=== PATIENT | male | born 1965 | race Caucasian/White ===

== ENCOUNTER → 2018-03-08 14:42 | Outpatient (CLI) | payer OTHER, SELFPAY ==
[2018-03-08 15:54] LABS: PSA,Total - Annual Screen 0.47 ng/mL (0.00-4.00)
[2018-03-11 13:43] LABS: ALB/GLOB Ratio 1.1 RATIO (0.9-2.4); AST(SGOT) 28 U/L (15-37); Alanine Aminotransfer ALT/SGPT 42 U/L (16-61); Alkaline Phosphatase 69 U/L (45-117); Anion Gap 10 (5-15); BUN 14 mg/dL (7-18); BUN/Creat Ratio 16.8 RATIO (10-20); Calcium,Total 8.5 mg/dL (8.5-10.1); Chloride 103 mmol/L (98-107); Cholesterol 161 mg/dL (200); Creatinine, Serum 0.83 mg/dL (0.70-1.30); EST Glomerular Filtration Rate 103 mL/min (>60); Est Glom Filt Rate - Afr Amer 125 mL/min (>60); Globulin 3.5 g/dL (2.2-4.2); Glucose 88 mg/dL (74-106); High Density Lipoprotein 36 mg/dL; Potassium 4.2 mmol/L (3.5-5.1); Protein, Total 7.5 g/dL (6.4-8.2); Sodium Level 138 mmol/L (136-145); Thyroid Stim Hormone (TSH) 2.04 uIU/mL (0.358-3.74); Triglycerides 187 mg/dL; Very Low Density Lipoprotein 37 mg/dL (5-40)
== END ==
PROVIDERS: Nurse Practitioner Family; Family Provider Family Medicine; PCP Family Medicine; Referring Provider Urology; Visit Provider Urology
DX: Z12.5 Encounter for screening for malignant neoplasm of prostate (principal)
CPT/HCPCS: 36415; 80053; 80061; 84153; 84443; G0103

== ENCOUNTER → 2019-07-05 08:59 | Outpatient (CLI) | payer OTHER, SELFPAY ==
[2019-07-05 11:15] LABS: PSA,Total - Annual Screen 0.49 ng/mL (0.00-4.00)
== END ==
PROVIDERS: PCP Family Medicine; Referring Provider Urology; Visit Provider Urology
DX: Z12.5 Encounter for screening for malignant neoplasm of prostate (principal)
CPT/HCPCS: 36415; 84153; G0103

== ENCOUNTER → 2020-02-22 16:25 | Outpatient (CLI) | payer OTHER, SELFPAY ==
[2020-02-22 18:22] LABS: AST(SGOT) 24 U/L (15-37); Alanine Aminotransfer ALT/SGPT 43 U/L (16-61); T4 Total, Thyroxin 9.1 ug/dL (4.5-12.1); Thyroid Stim Hormone (TSH) 2.84 uIU/mL (0.358-3.74)
== END ==
PROVIDERS: PCP Family Medicine; Referring Provider Family Medicine; Visit Provider Family Medicine
DX: Z00.00 Encounter for general adult medical examination without abnormal findings (principal); E03.9 Hypothyroidism, unspecified; E78.5 Hyperlipidemia, unspecified
CPT/HCPCS: 36415; 84436; 84443; 84450; 84460

== ENCOUNTER → 2020-10-15 08:43 | Outpatient (CLI) | payer OTHER, SELFPAY ==
[2020-10-15 10:13] LABS: PSA,Total - Annual Screen 0.53 ng/mL (0.00-4.00)
== END ==
PROVIDERS: PCP Family Medicine; Referring Provider Nurse Practitioner Adult Health; Visit Provider Nurse Practitioner Adult Health
DX: Z12.5 Encounter for screening for malignant neoplasm of prostate (principal)
CPT/HCPCS: 36415; 84153; G0103

== ENCOUNTER → 2021-03-18 14:54 | Outpatient (CLI) | payer OTHER, SELFPAY ==
[2021-03-18 18:20] LABS: AST(SGOT) 25 U/L (15-37); Alanine Aminotransfer ALT/SGPT 49 U/L (16-61); Anion Gap 7 (5-15); BUN 16 mg/dL (7-18); BUN/Creat Ratio 15.5 RATIO (10-20); Calcium,Total 8.7 mg/dL (8.5-10.1); Chloride 105 mmol/L (98-107); Creatinine, Serum 1.03 mg/dL (0.70-1.30); EST Glomerular Filtration Rate 80 mL/min (>60); Est Glom Filt Rate - Afr Amer 97 mL/min (>60); Glucose 119 mg/dL (74-106); Potassium 3.9 mmol/L (3.5-5.1); Sodium Level 137 mmol/L (136-145); T4 Total, Thyroxin 7.5 ug/dL (4.5-12.1); Thyroid Stim Hormone (TSH) 2.78 uIU/mL (0.358-3.74)
[2021-03-18 18:22] LABS: Microalbumin,Random Urine 12.1 mg/L (NO RANGE EST.); Microalbumin:Creatinine Ratio 7.1 mg/g CRE (<30 mg/g CRE)
== END ==
PROVIDERS: PCP Family Medicine; Visit Provider Family Medicine
DX: I10 Essential (primary) hypertension (principal); E03.9 Hypothyroidism, unspecified; E78.5 Hyperlipidemia, unspecified
CPT/HCPCS: 36415; 80048; 82043; 82570; 84436; 84443; 84450; 84460

== ENCOUNTER → 2021-10-21 | Outpatient (CLI) | payer OTHER, SELFPAY ==
[2021-10-21 09:11] LABS: PSA,Total - Annual Screen 0.55 ng/mL (0.00-4.00)
== END | disposition home or self-care (01) ==
LOC: LAB 07:32
PROVIDERS: PCP Family Medicine; Visit Provider Registered Nurse
DX: Z12.5 Encounter for screening for malignant neoplasm of prostate (principal)
CPT/HCPCS: 36415; 84153; G0103

== ENCOUNTER → 2022-06-04 | Outpatient (CLI) | payer OTHER, SELFPAY ==
[2022-06-04 18:37] LABS: Anion Gap 10 (5-15); BUN 19 mg/dL (7-18); BUN/Creat Ratio 21.9 RATIO (10-20); Calcium,Total 9.4 mg/dL (8.5-10.1); Chloride 103 mmol/L (98-107); Cholesterol 162 mg/dL (200); Creatinine, Serum 0.87 mg/dL (0.70-1.30); EST Glomerular Filtration Rate 97 mL/min (>60); Est Glom Filt Rate - Afr Amer 117 mL/min (>60); Glucose 86 mg/dL (74-106); High Density Lipoprotein 42 mg/dL; Potassium 3.7 mmol/L (3.5-5.1); Sodium Level 138 mmol/L (136-145); Thyroid Stim Hormone (TSH) 2.75 uIU/mL (0.358-3.74); Triglycerides 260 mg/dL; Very Low Density Lipoprotein 52 mg/dL (5-40)
== END | disposition home or self-care (01) ==
LOC: MFPLAB 14:24
PROVIDERS: PCP Family Medicine; Referring Provider Family Medicine; Visit Provider Family Medicine
DX: Z00.00 Encounter for general adult medical examination without abnormal findings (principal); R39.9 Unspecified symptoms and signs involving the genitourinary system; I10 Essential (primary) hypertension; E03.9 Hypothyroidism, unspecified
CPT/HCPCS: 36415; 80048; 80061; 84443; 87086; 87088

== ENCOUNTER → 2022-10-20 | Outpatient (CLI) | payer OTHER, SELFPAY ==
[2022-10-20 16:23] LABS: PSA,Total - Annual Screen 0.64 ng/mL (0.00-4.00)
== END | disposition home or self-care (01) ==
LOC: LAB 15:04
PROVIDERS: PCP Family Medicine; Referring Provider Urology; Visit Provider Urology
DX: Z12.5 Encounter for screening for malignant neoplasm of prostate (principal)
CPT/HCPCS: 36415; 84153; G0103

== ENCOUNTER → 2023-09-08 | Outpatient (CLI) | payer OTHER, SELFPAY ==
[2023-09-08 18:09] LABS: Protein:Creat Ratio 63 mg/g CRE (0-200)
[2023-09-08 18:33] LABS: AST(SGOT) 26 U/L (15-37); Alanine Aminotransfer ALT/SGPT 32 U/L (16-61); Anion Gap 6 (5-15); BUN 15 mg/dL (7-18); BUN/Creat Ratio 19.3 RATIO (10-20); Calcium,Total 9.1 mg/dL (8.5-10.1); Chloride 104 mmol/L (98-107); Cholesterol 162 mg/dL (200); Creatinine, Serum 0.78 mg/dL (0.70-1.30); EST Glomerular Filtration Rate 109 mL/min (>60); Est Glom Filt Rate - Afr Amer 132 mL/min (>60); Glucose 91 mg/dL (74-106); High Density Lipoprotein 43 mg/dL; Potassium 3.8 mmol/L (3.5-5.1); Sodium Level 136 mmol/L (136-145); T4 Total, Thyroxin 7.2 ug/dL (4.5-12.1); Thyroid Stim Hormone (TSH) 2.53 uIU/mL (0.358-3.74); Triglycerides 119 mg/dL; Very Low Density Lipoprotein 24 mg/dL (5-40)
== END | disposition home or self-care (01) ==
LOC: MFPLAB 14:20
PROVIDERS: PCP Family Medicine; Visit Provider Family Medicine
DX: I10 Essential (primary) hypertension (principal); E03.9 Hypothyroidism, unspecified; E78.5 Hyperlipidemia, unspecified
CPT/HCPCS: 36415; 80048; 80061; 82570; 84156; 84436; 84443; 84450; 84460

== ENCOUNTER → 2023-10-22 | Outpatient (CLI) | payer OTHER, SELFPAY ==
[2023-10-22 10:29] LABS: PSA,Total - Annual Screen 0.63 ng/mL (0.00-4.00)
== END | disposition home or self-care (01) ==
LOC: LAB 08:22
PROVIDERS: PCP Family Medicine; Referring Provider Nurse Practitioner; Visit Provider Nurse Practitioner
DX: Z12.5 Encounter for screening for malignant neoplasm of prostate (principal)
CPT/HCPCS: 36415; 84153; G0103

== ENCOUNTER → 2024-02-26 | Outpatient (CLI) | payer OTHER, SELFPAY ==
--- NOTE | 2024-02-26 07:09 | US_ITS ---
EXAM: US RETROPERITONEAL LIMITED, AORTA CLINICAL INDICATION: screening due to family history, hypertension and obesity TECHNIQUE: [place] scale and color Doppler imaging was obtained of the abdominal aorta. COMPARISON: Renal and bladder ultrasound, 06/25/2016. FINDINGS: AORTA: The proximal abdominal aorta measures 2.0 x 2.2 cm. The mid abdominal aorta measures 1.8 x 2.0 cm. The distal abdominal aorta measures 1.8 x 2.0 cm. The abdominal aorta is slightly tortuous. No significant atheroma of the aorta is present. COMMON ILIAC ARTERIES: The bilateral common iliac arteries measure 1.2 x 1.1 cm each. US/Aorta IMPRESSION: No acute findings in the aorta. No abdominal aortic aneurysm. No future aortic screenings are necessary. Electronically Signed: Rosendo Lorenzana DO at 21:18 EDT ,
== END | disposition home or self-care (01) ==
PROVIDERS: PCP Family Medicine; Referring Provider Family Medicine; Visit Provider Family Medicine
DX: I10 Essential (primary) hypertension (principal); E66.01 Morbid (severe) obesity due to excess calories; Z82.49 Family history of ischemic heart disease and other diseases of the circulatory system
CPT/HCPCS: 76775

== ENCOUNTER → 2024-09-16 | Outpatient (CLI) | payer OTHER, SELFPAY ==
[2024-09-16 13:46] LABS: Absolute Neutrophil Count 3.8 X10^3/uL (2.0-7.7); Basophil# 0.11 X10^3/uL; Basophil% 1.6 % (0-1); Eosinophil# 0.28 X10^3/uL; Hematocrit 41.6 % (40-54); Hemoglobin 14.5 g/dL (13.0-16.5); Lymphocyte % 29.7 % (19-41); Mean Corp Hgb Conc 34.9 g/dL (32-36); Mean Corpuscular Hgb 31.8 pg (27.0-32.0); Mean Corpuscular Volume 91.2 fL (80-94); Mean Platelet Vol. 10.6 fl (6.2-12.0); Monocyte% 9.9 % (0-10); NRBC Flagged by Analyzer 0 % (0-5); Neutrophil # 3.84 X10^3/uL (2.7-7.7); Neutrophil % 54.4 % (47-70); Platelet Count 217 K/mm3 (150-450); RBC Distribution Width CV 12.4 % (11.6-14.6); RBC Distribution Width SD 41.1 fl (35.1-43.9); Red Blood Count 4.56 M/mm3 (4.6-6.2); White Blood Count 7.1 K/mm3 (4.4-11.0)
[2024-09-16 14:21] LABS: ALB/GLOB Ratio 1.5 RATIO (0.9-2.4); AST(SGOT) 29 U/L (<=37); Alanine Aminotransfer ALT/SGPT 31 U/L (<=46); Albumin, Serum 4.6 g/dL (3.5-5.0); Alkaline Phosphatase 69 U/L (40-129); Anion Gap 12 (5-15); BUN 18 mg/dL (4-19); BUN/Creat Ratio 24.5 RATIO (10-20); Calcium,Total 9.2 mg/dL (7.6-11.0); Carbon Dioxide 20.3 mmol/L (21.0-32.0); Chloride 105 mmol/L (98-108); Cholesterol 176 mg/dL (<=200); Creatinine, Serum 0.72 mg/dL (0.70-1.20); EST Glomerular Filtration Rate 106 (>60); Glucose 106 mg/dL (70-99); High Density Lipoprotein 38 mg/dL; Low Density Lipoprotein Calc. 113 mg/dL; Protein, Total 7.5 g/dL (5.9-8.4); Sodium Level 138 mmol/L (133-145); Total Bilirubin 0.57 mg/dL (0.00-1.30); Triglycerides 121 mg/dL; Very Low Density Lipoprotein 24 mg/dL (5-40); cholesterol:hdl ratio screen 4.58
== END | disposition home or self-care (01) ==
LOC: BIMLAB 11:01
PROVIDERS: PCP Internal Medicine; Referring Provider Physician Assistant; Visit Provider Physician Assistant
DX: Z00.00 Encounter for general adult medical examination without abnormal findings (principal); E78.00 Pure hypercholesterolemia, unspecified
CPT/HCPCS: 36415; 80053; 80061; 84443; 85025

== ENCOUNTER → 2024-10-25 | Outpatient (CLI) | payer OTHER, SELFPAY ==
[2024-10-25 10:38] LABS: PSA,Total - Annual Screen 0.78 ng/mL (0.02-4.00)
--- OUTSIDE RECORDS SUMMARY | 2024-10-25 19:35 | XMS RPT_ITS | CCD ---
Author Organization [facility] Care Team Providers Care Prawn Trawler Hand Name Role Phone Maria Esther Garcia Primary Care Provider [phone] Dr. Maria Esther Garcia MD Primary Care Provider [phone] Dr. Maria Esther Garcia MD Referring Provider Gareth Ram Attending Provider Dr. Miya Ceron MD Primary Care Provider [phone] Gareth Ram Referring Provider Gareth Ram Referring Unavailable Gareth Ram Attending Unavailable Miya Ceron Primary Care Unavailable Moclips, Karey Referring Unavailable Moclips, Karey Attending Unavailable Maria Esther Garcia Primary Care Unavailable Maria Esther Garcia Referring Unavailable Maria Esther Garcia Attending Unavailable Maria Esther Garcia Primary Care Unavailable Maria Esther Garcia S Primary Care Unavailable Gareth Ram Attending Unavailable Maria Esther Garcia Referring Unavailable Medications Current Medications Medication Drug Class(es) Dates Sig (Normalized) Sig (Original) benzonatate 100 mg oral capsule (1 source) Non-narcotic Antitussive Start: 08-01-2024 End: 08-08-2024 take 1 capsule by mouth three times daily as needed for cough benzonatate (TESSALON PERLE) 100 mg capsule Indications: Acute URI Take 1 capsule by mouth three times a day as needed for cough for up to 7 days. 21 capsule 08/01/2024 08/08/2024 Active levothyroxine (1 source) l-Thyroxine LEVOTHYROXINE SODIUM (LEVOTHROID ORAL) Take by mouth. Active rosuvastatin calcium 20 mg oral tablet (2 sources) HMG-CoA Reductase Inhibitor Start: 09-16-2024 take 1 tablet by mouth once daily Rosuvastatin 20 mg tablet Active 20 mg PO daily September 16, 2024 12:00am ROSUVASTATIN KODAK CIUM (CRESTOR ORAL) Take by mouth. Active Problems Active Problems Problem Classification Problem Date Documented Da te Episodic/Chronic Disorders of lipid metabolism (3 sources) Hypercholesterolemi a; Translations: [Pure hypercholesterolemi a, unspecified] Onset: 09-17-2024 09-16-2024 Chronic Essential hypertension (1 source) Essential (primary) hypertension; Translations: [Essential (primary) hypertension] Onset: 03-19-2024 Chronic Other upper respiratory infections (1 source) Acute upper respiratory infection; Translations: [Acute upper respiratory infection, unspecified] 08-01-2024 Episodic Past or Other Problems Problem Classification Problem Date Documented Da te Episodic/Chronic Other screening for suspected conditions (not mental disorders or infectious disease) (1 source) Encounter for screening for malignant neoplasm of prostate; Translations: [Encounter for screening for malignant neoplasm of prostate] Onset: 10-30-2023 Episodic Results Test Name Value Interpretation Reference Range Facility Absolute lymphocyte countOrd ered By: Gareth Hernandez on 09-16-2024 Lymphocytes Auto (Unsp spec) [#/Vol] 2.10 10*3/uL 0.83-4.51 [facility] Absolute neutrophil countOrd ered By: Gareth Hernandez on 09-16-2024 Neutrophils (Bld) [#/Vol] 3.8 10*3/uL 2.0-7.7 [facility] Anion gap in Serum or Plasma Ordered By: Gareth Hernandez on 09-16-2024 Anion gap [Moles/Vol] 12 mmol/L 5-15 [facility] Automated lymphocyte count a s percentage of total leukocytesOrdered By: Gareth Hernandez on 09-16-2024 Lymphocytes/100 WBC Auto (Unsp spec) 29.7 % 19-41 [facility] BUN/creatinine ratioOrdered By: Gareth Hernandez on 09-16-2024 Urea nitrogen/Creatinine [Mass ratio] 24.5 mg/mg High 10-20 [facility] Basophil percentageOrdered B y: Gareth Hernandez on 09-16-2024 Basophils/100 WBC (Bld) 1.6 % High 0-1 [facility] Bilirubin, totalOrdered By: Gareth Hernandez on 09-16-2024 Bilirubin [Mass/Vol] 0.57 mg/dL 0.00-1.30 [facility] CBC W/Diff, Automatedon 05-0 Absolute Lymph 2.10 X10 3/uL Normal 0.83-4.51 [facility] Comment on above: Performed By: #### L 501.9520, L100.0100, L500.4050, L500.4100 #### [facility] [address] [place], [address] Absolute Neut 3.8 X10 3/uL Normal 2.0-7.7 [facility] Comment on above: Performed By: #### L 501.9520, L100.0100, L500.4050, L500.4100 #### [facility] [place] [facility] [address] [place], [address] Basophils/100 WBC (Bld) 1.6 % High 0-1 [facility] Comment on above: Performed By: #### L 501.9520, L100.0100, L500.4050, L500.4100 #### [facility] [address] [place], [address] Eosinophils/100 WBC (Bld) 4.0 % Normal 0-5 [facility] Comment on above: Performed By: #### L 501.9520, L100.0100, L500.4050, L500.4100 #### [facility] [address] [place], [address] Erythrocyte distribution width (RBC) [Ratio] 12.4 % Normal 11.6-14.6 [facility] Comment on above: Performed By: #### L 501.9520, L100.0100, L500.4050, L500.4100 #### [facility] [address] [place], [address] Hematocrit (Bld) [Volume fraction] 41.6 % Normal 40-54 [facility] Comment on above: Performed By: #### L 501.9520, L100.0100, L500.4050, L500.4100 #### [facility] [address] [place], [address] Hemoglobin (Bld) [Mass/Vol] 14.5 g/dL Normal 13.0-16.5 [facility] Comment on above: Performed By: #### L 501.9520, L100.0100, L500.4050, L500.4100 #### [facility] [address] [place], [address] IG% 0.400 Normal 0.0-0.9 [facility] Comment on above: Result Comment: IG% - Immature Granulocytes (promyelocytes, myelocytes and metamyelocytes) > 1% indicates that a LEFT SHIFT is Present. Performed By: #### L 501.9520, L100.0100, L500.4050, L500.4100 #### [facility] [address] [place], [address] Lymphocytes/100 WBC (Bld) 29.7 % Normal 19-41 [facility] Comment on above: Performed By: #### L 501.9520, L100.0100, L500.4050, L500.4100 #### [facility] [address] [place], [address] MCH (RBC) [Entitic mass] 31.8 pg Normal 27.0-32.0 [facility] Comment on above: Performed By: #### L 501.9520, L100.0100, L500.4050, L500.4100 #### [facility] [address] [place], [address] MCHC (RBC) [Mass/Vol] 34.9 g/dL Normal 32-36 [facility] Comment on above: Performed By: #### L 501.9520, L100.0100, L500.4050, L500.4100 #### [facility] [address] [place], [address] MCV (RBC) [Entitic vol] 91.2 fL Normal 80-94 [facility] Comment on above: Performed By: #### L 501.9520, L100.0100, L500.4050, L500.4100 #### [facility] [place] [facility] [address] [place], [address] Monocytes/100 WBC (Bld) 9.9 % Normal 0-10 [facility] Comment on above: Performed By: #### L 501.9520, L100.0100, L500.4050, L500.4100 #### [facility] [place] [facility] [address] [place], [address] Neutrophils/100 WBC (Bld) 54.4 % Normal 47-70 [facility] Comment on above: Performed By: #### L 501.9520, L100.0100, L500.4050, L500.4100 #### [facility] [place] [facility] [address] [place], [address] Nucleated RBC (Bld) [#/Vol] 0 10*3/uL Normal 0-5 [facility] Comment on above: Performed By: #### L 501.9520, L100.0100, L500.4050, L500.4100 #### [facility] [place] [facility] [address] [place], [address] Platelet mean volume (Bld) [Entitic vol] 10.6 fL Normal 6.2-12.0 [facility] Comment on above: Performed By: #### L 501.9520, L100.0100, L500.4050, L500.4100 #### [facility] [place] [facility] [address] [place], [address] Platelets (Bld) [#/Vol] 217 10*3/uL Normal 150-450 [facility] Comment on above: Performed By: #### L 501.9520, L100.0100, L500.4050, L500.4100 #### [facility] [place] [facility] [address] [place], [address] RBC (Bld) [#/Vol] 4.56 10*6/uL Low 4.6-6.[address] [facility] Comment on above: Performed By: #### L 501.9520, L100.0100, L500.4050, L500.4100 #### [facility] [place] [facility] [address] [place], [address] RDW SD 41.1 fl Normal 35.1-43.9 [facility] Comment on above: Performed By: #### L 501.9520, L100.0100, L500.4050, L500.4100 #### [facility] [place] [facility] [address] [place], [address] WBC (Bld) [#/Vol] 7.1 10*3/uL Normal 4.4-11.0 [facility] Comment on above: Performed By: #### L 501.9520, L100.0100, L500.4050, L500.4100 #### [facility] [address] [place], [address] Calculated very low density lipoprotein (VLDL) cholesterol measurementOrdered By: Gareth Hernandez on 09-16-2024 Calculated very low density lipoprotein (VLDL) cholesterol measurement 24 mg/dL 5-40 [facility] Carbon dioxide, total [Moles /volume] in Central venous bloodOrdered By: Gareth Hernandez on 09-16-2024 CO2 [Moles/Vol] 20.3 mmol/L Low 21.0-32.0 [facility] Chloride assayOrdered By: Cayden Hernandez on 09-16-2024 Chloride [Moles/Vol] 105 mmol/L 98-108 [facility] Comprehensive Metabolic Prof ilon 09-16-2024 Albumin [Mass/Vol] 4.6 g/dL Normal 3.5-5.0 [facility] Comment on above: Performed By: #### L 501.9520, L100.0100, L500.4050, L500.4100 #### [facility] [address] [place], [address] Albumin/Globulin [Mass ratio] 1.5 {ratio} Normal 0.9-2.4 [facility] Comment on above: Performed By: #### L 501.9520, L100.0100, L500.4050, L500.4100 #### [facility] [address] [place], [address] ALK PHOS 69 U/L Normal 40-129 [facility] Comment on above: Performed By: #### L 501.9520, L100.0100, L500.4050, L500.4100 #### [facility] [address] [place], [address] ALT [Catalytic activity/Vol] 31 U/L Normal <=46 [facility] Comment on above: Performed By: #### L 501.9520, L100.0100, L500.4050, L500.4100 #### [facility] [place] [facility] [address] [place], [address] AST [Catalytic activity/Vol] 29 U/L Normal <=37 [facility] Comment on above: Performed By: #### L 501.9520, L100.0100, L500.4050, L500.4100 #### [facility] [place] [facility] [address] [place], [address] Bilirubin [Mass/Vol] 0.57 mg/dL Normal 0.00-1.30 [facility] Comment on above: Performed By: #### L 501.9520, L100.0100, L500.4050, L500.4100 #### [facility] [address] [place], [address] BUN/CRE 24.5 RATIO High 10-20 [facility] Comment on above: Performed By: #### L 501.9520, L100.0100, L500.4050, L500.4100 #### [facility] [place] [facility] [address] [place], [address] Calcium [Mass/Vol] 9.2 mg/dL Normal 7.6-11.0 [facility] Comment on above: Performed By: #### L 501.9520, L100.0100, L500.4050, L500.4100 #### [facility] [address] [place], [address] Chloride [Moles/Vol] 105 mmol/L Normal 98-108 [facility] Comment on above: Performed By: #### L 501.9520, L100.0100, L500.4050, L500.4100 #### [facility] [place] [facility] [address] [place], [address] CO2 [Moles/Vol] 20.3 mmol/L Low 21.0-32.0 [facility] Comment on above: Performed By: #### L 501.9520, L100.0100, L500.4050, L500.4100 #### [facility] [place] [facility] [address] [place], [address] Creatinine [Mass/Vol] 0.72 mg/dL Normal 0.70-1.20 [facility] Comment on above: Performed By: #### L 501.9520, L100.0100, L500.4050, L500.4100 #### [facility] [place] [facility] [address] [place], [address] GAP 12 Normal 5-15 [facility] Comment on above: Performed By: #### L 501.9520, L100.0100, L500.4050, L500.4100 #### [facility] [place] [facility] [address] [place], [address] GFR/1.73 sq M.predicted among non-blacks MDRD (S/P/Bld) [Vol rate/Area] 106 mL/min/{1.73_m2} Normal >60 [facility] Comment on above: Result Comment: mL/m in/1.73m2 CKD-EPI Creatinine Equation (2020) Performed By: #### L 501.9520, L100.0100, L500.4050, L500.4100 #### [facility] [place] [facility] [address] [place], [address] Globulin (S) [Mass/Vol] 3.0 g/dL Normal 2.2-4.2 [facility] Comment on above: Performed By: #### L 501.9520, L100.0100, L500.4050, L500.4100 #### [facility] [place] [facility] [address] [place], [address] Glucose [Mass/Vol] 106 mg/dL High 70-99 [facility] Comment on above: Performed By: #### L 501.9520, L100.0100, L500.4050, L500.4100 #### [facility] [place] [facility] [address] [place], [address] Potassium [Moles/Vol] 4.0 mmol/L Normal 3.3-5.1 [facility] Comment on above: Performed By: #### L 501.9520, L100.0100, L500.4050, L500.4100 #### [facility] [place] [facility] [address] [place], [address] Sodium [Moles/Vol] 138 mmol/L Normal 133-145 [facility] Comment on above: Performed By: #### L 501.9520, L100.0100, L500.4050, L500.4100 #### [facility] [place] [facility] [address] [place], [address] T PROT 7.5 g/dL Normal 5.9-8.4 [facility] [place] [facility] Comment on above: Performed By: #### L 501.9520, L100.0100, L500.4050, L500.4100 #### [facility] [place] [facility] [address] [place], [place], [id number] Urea nitrogen [Mass/Vol] 18 mg/dL Normal 4-19 [facility] [place] [facility] Comment on above: Performed By: #### L 501.9520, L100.0100, L500.4050, L500.4100 #### [facility] [place] [facility] [address] [place], [place], [id number] Eosinophil percentageOrdered By: Gareth Hernandez on 09-16-2024 Eosinophils/100 WBC (Bld) 4.0 % 0-5 [facility] Erythrocyte distribution wid th ratioOrdered By: Gareth Hernandez on 09-16-2024 Erythrocyte distribution width (RBC) [Ratio] 12.4 % 11.6-14.6 [facility] Erythrocyte distribution wid th standard deviationOrdered By: Gareth Hernandez on 09-16-2024 Erythrocyte distribution width (RBC) [Ratio] 41.1 fl 35.1-43.9 [facility] Glomerular filtration rate ( GFR) estimation/1.73 sq m using serum, plasma, or whole bOrdered By: Gareth Hernandez on 09-16-2024 GFR/1.73 sq M.predicted among non-blacks MDRD (S/P/Bld) [Vol rate/Area] 106 mL/min/{1.73_m2} >60 [facility] Comment on above: mL/min/1.73m2 CKD-EP I Creatinine Equation (2020) Hematocrit Auto (Bld) [Volum e fraction]Ordered By: Gareth Hernandez on 09-16-2024 Hematocrit (Bld) [Volume fraction] 41.6 % 40-54 [facility] Hemoglobin measurementOrdere d By: Gareth Hernandez on 09-16-2024 Hemoglobin (Bld) [Mass/Vol] 14.5 g/dL 13.0-16.5 [facility] Immature granulocytes/100 WB C Auto (Bld)Ordered By: Gareth Hernandez on 09-16-2024 Immature granulocytes/100 WBC (Bld) 0.400 % 0.0-0.9 [facility] Comment on above: IG% - Immature Granu locytes (promyelocytes, myelocytes and metamyelocytes) > 1% indicates that a LEFT SHIFT is Present. Internal Medicine Office Vis iton 09-16-2024 Internal Medicine Office Visit [facility] [address] [place] [address] [place] [address] OFFICE VISIT Date of Service: 09/16/24 MR#: [id number] Acct: [id number] Name: AMPARO HENDRICKSON Rep #: [id number] : 1965 Provider: BRIANDA Johnson Age/Sex: 59/M [place] [facility] [place] [facility] [place]: Signed Intake Vital Signs 09/16/24 10:21 Height 5 ft 6 in Weight: 212 lb BMI 34.2 BP 124/80 H Blood Pressure Location Lt brachial Position Sitting Respiration 16 Pulse 68 Pulse Source Monitor Temp 97.6 F L Temp Source Temporal Pulse Oximetry (%) 96 Oxygen Delivery Method room air Comment WAIST CIRCUMF 44 Intake Visit Reasons: ACUTE - WANTS BLOODWORK Is patient in pain?: No Allergies No Known Allergies Allergy (Unverified 09/16/24 10:15) Medications ???Medication ???Instructions ???Recorded ???Confirmed ???Type rosuvastatin 20 mg tablet 20 mg PO QDAY 09/16/24 09/16/24 Hi story Have you fallen in the past year?: No Nurse's Note: PATIENT NEEDING LABS COMPLETED IN ORDER TO SUBMIT PPW TO EMPLOYER PRIOR TO THE END OF OCTOBER [facility] Medical History (Updated 09/16/24 @ 10:42 by BRIANDA Blanco) Biceps tendon tear Bone fracture High cholesterol Family History (Updated 09/16/24 @ 10:19 by Paulina Menjivar) Father High cholesterol Social History (Updated 09/16/24 @ 10:20 by Paulina Menjivar) Smoking Status: Former smoker alcohol intake: current alcohol intake frequency: a few times a week Alcohol type: beer substance use type: does not use and former substance user what type of physical activity do you participate in: walking frequency: daily seatbelt use: always do you feel safe at home: Yes HPI HPI Details: AMPARO HENDRICKSON, is a 59 M who presents to the office today for Insurance physical forms including labs TO this point patient has been relatively healthy without any significant past medical history. He states that he has no significant family history of major medical issues. His father had a AAA repaired last year Currently he only takes the Crestor for his cholesterol which he has been on for approximately 20 years. He has not noticed any significant myalgias. He states that his diet is fair. He knows that he needs to be more disciplined and he does want to lose some weight Patient does get regular exercise walking his dog daily/nightly He does see Dentist regularly He does see an eye doctor regularly. He does wear glasses. He has not had any recent prescription changes Patient had a couple colonoscopies. Initially had one in 40s due to some blood in the stool (internal hemorrhoids). He then had screening in 2017 all of which was normal. He does see Urology (Dr. Palacio) for prostate monitoring. He had some symptoms previously and so he started to see them and has just continued Patient does not use nicotine some ETOH use occasionally during the week and weekends. He does drink coffee in the mornings ROS Const Constitutional: No body ache, chills, excessive sweating, fatigue, fever(s), frequent falls, headache(s), snoring, weakness, sleep problems or change in appetite Eyes Eyes: No blurry vision, change in vision or Light sensitivity ENT ENT: No abnormal hearing, ear or mastoid pain, tinnitus, nasal congestion, nasal discharge, headache(s), neck pain or sore throat Resp Respiratory: No cough, shortness of breath, snoring or wheezing Cardio Cardiology: No chest pain at rest, chest pain with exertion, excessive sweating, shortness of breath, dyspnea on exertion, lightheadedness, orthopnea or palpitations Gastro GI: No abdominal pain, change in bowel habits, constipation, cramping, diarrhea or nausea/dyspepsia Genitourinary Male: No burning urination, painful urination, urinary incontinence or urinary frequency Musc Musculoskeletal: No abnormal gait, joint pain, back pain, limited range of motion, muscle weakness, neck pain or numbness Skin Skin: No dry skin, redness, lesions, itchy eyes, rash or wounds Neuro Neurology: No abnormal gait, abnormal hearing, weakness, frequent falls, headache(s), memory loss or numbness Psych Psychiatric: No anxiety, No change in appetite, No depression, No memory loss, No panic attacks and No Thoughts of harming yourself/Others Endo Endocrine: No cold intolerance, excessive sweating, fatigue, flushing, heat intolerance, increased thirst/drinking or increased hunger Aller/Imm Allergy/Immunologic : No itchy eyes, seasonal allergy symptoms, hives or wheezing Exam Const General: cooperative, comfortable, no acute distress, well developed and well groomed Nutritional Appearance: overweight Orientation: alert, awake and oriented x3 HENMT Head: normocephalic and atraumatic Ears: hearing grossly normal bilaterally, external ears normal, TM's normal bilaterally and EAC's normal (more content not included)... Normal [facility] LDL calc ser/plasOrdered By: Gareth Hernandez on 09-16-2024 Cholesterol in LDL [Mass/Vol] 113 mg/dL [facility] Comment on above: Bvjidqokny=615-982 m g/dL & Higher Pwuc=726 mg/dL or greater Laboratory - Chemistry and C hemistry - challengeOrdered By: Gareth Hernandez on 09-16-2024 AST [Catalytic activity/Vol] 29 U/L <38 [facility] Lipid Profileon 09-16-2024 CHOL:HDL 4.58 Normal [facility] Comment on above: Performed By: #### L 501.9520, L100.0100, L500.4050, L500.4100 #### [facility] [address] [place], [place], [id number] Cholesterol [Mass/Vol] 176 mg/dL Normal <=200 [facility] Comment on above: Result Comment: Chol esterol level, Desirable <200 mg/dL Borderline high cholesterol 200-239 mg/dL High cholesterol >=240 mg/dL Recommendations of the NCEP Adult Treatment Panel for the following risk-cutoff thresholds for the [place] population. Performed By: #### L 501.9520, L100.0100, L500.4050, L500.4100 #### [facility] [address] [place], [place], [id number] Cholesterol in HDL [Mass/Vol] 38 mg/dL Low [facility] Comment on above: Result Comment: Renetta onal Cholesterol Education Program (NCEP) guidelines: <40 mg/dL: Low HDL-cholesterol (major risk factor for CHD) >= 60 mg/dL: High HDL-cholesterol (negative risk factor for CHD) HDL-cholesterol is affected by a number of factors, e.g. smoking, exercise, hormones, sex and age. Performed By: #### L 501.9520, L100.0100, L500.4050, L500.4100 #### [facility] [address] [place], [address] Cholesterol in LDL [Mass/Vol] 113 mg/dL Normal [facility] Comment on above: Result Comment: Bord idrbwj=844-396 mg/dL Higher Vqjm=934 mg/dL or greater Performed By: #### L 501.9520, L100.0100, L500.4050, L500.4100 #### [facility] [address] [place], [address] Cholesterol in VLDL [Mass/Vol] 24 mg/dL Normal 5-40 [facility] Comment on above: Performed By: #### L 501.9520, L100.0100, L500.4050, L500.4100 #### [facility] [address] [place], [address] Triglyceride [Mass/Vol] 121 mg/dL Normal [facility] Comment on above: Result Comment: The drugs N-Acetylcysteine and Metamizole may falsely depress this assay. Normal range: <150 mg/dL Borderline High: 150-199 mg/dL High: 200-499 mg/dL Very High: >500 mg/dL Performed By: #### L 501.9520, L100.0100, L500.4050, L500.4100 #### [facility] [address] [place], [address] MCV (mean corpuscular volume ) determinationOrdered By: Gareth Hernandez on 09-16-2024 MCV (RBC) [Entitic vol] 91.2 fL 80-94 [facility] Mean corpuscular hemoglobin (MCH) determinationOrdered By: Gareth Hernandez on 09-16-2024 MCH (RBC) [Entitic mass] 31.8 pg 27.0-32.0 [facility] Mean corpuscular hemoglobin concentration (MCHC) determinationOrdered By: Gareth Hernandez on 09-16-2024 MCHC (RBC) [Mass/Vol] 34.9 g/dL 32-36 [facility] Mean platelet volume determi nationOrdered By: Gareth Hernandez on 09-16-2024 Platelet mean volume (Bld) [Entitic vol] 10.6 fL 6.2-12.0 [facility] Monocyte percentageOrdered B y: Gareth Hernandez on 09-16-2024 Monocytes/100 WBC (Bld) 9.9 % 0-10 [facility] Neutrophil percentageOrdered By: Gareth Hernandez on 09-16-2024 Neutrophils/100 WBC (Bld) 54.4 % 47-70 [facility] Nucleated red blood cell per centageOrdered By: Gareth Hernandez on 09-16-2024 Nucleated RBC/100 WBC (Bld) [Ratio] 0 % 0-5 [facility] Platelet countOrdered By: Cayden Hernandez on 09-16-2024 Platelets (Bld) [#/Vol] 217 10*3/uL 150-450 [facility] Potassium measurement (mass/ volume)Ordered By: Gareth Hernandez on 09-16-2024 Potassium (Unsp spec) [Mass/Vol] 4.0 mmol/L 3.3-5.1 [facility] RBC Auto (Bld) [#/Vol]Ordere d By: Gareth Hernandez on 09-16-2024 RBC (Bld) [#/Vol] 4.56 10*6/uL Low 4.6-6.[address] [facility] Screening total cholesterol/ high density lipoprotein (HDL) cholesterol ratioOrdered By: Gareth Hernandez on 09-16-2024 Cholesterol.total/Cholest maira in HDL [Mass ratio] 4.58 {ratio} [facility] Serum creatinine measurement (mass/volume)Ordered By: Gareth Hernandez on 09-16-2024 Creatinine [Mass/Vol] 0.72 mg/dL 0.70-1.20 [facility] Serum globulin measurementOr dered By: Gareth Hernandez on 09-16-2024 Globulin (S) [Mass/Vol] 3.0 g/dL 2.2-4.2 [facility] Serum glucose measurement (m ass/volume)Ordered By: Gareth Hernandez on 09-16-2024 Glucose [Mass/Vol] 106 mg/dL High 70-99 [facility] Serum or plasma alanine pitts otransferase (ALT) measurementOrdered By: Gareth Hernandez on 09-16-2024 ALT [Catalytic activity/Vol] 31 U/L <47 [facility] Serum or plasma albumin kathy urement (mass/volume)Ordered By: Gareth Hernandez on 09-16-2024 Albumin [Mass/Vol] 4.6 g/dL 3.5-5.0 [facility] Serum or plasma albumin/glob ulin mass ratioOrdered By: Gareth Hernandez on 09-16-2024 Albumin/Globulin [Mass ratio] 1.5 {ratio} 0.9-2.4 [facility] Serum or plasma alkaline mario sphatase measurementOrdered By: Gareth Hernandez on 09-16-2024 ALP [Catalytic activity/Vol] 69 U/L 40-129 [facility] Serum or plasma calcium kathy urement (mass/volume)Ordered By: Gareth Hernandez on 09-16-2024 Calcium [Mass/Vol] 9.2 mg/dL 7.6-11.0 [facility] Serum or plasma cholesterol in HDL measurement (mass/volume)Ordered By: Gareth Hernandez on 09-16-2024 Cholesterol in HDL [Mass/Vol] 38 mg/dL Low >40 [facility] Comment on above: National Cholesterol Education Program (NCEP) guidelines:<40 mg/dL: Low HDL-cholesterol (major risk factor for CHD)>= 60 mg/dL: High HDL-cholesterol (negative risk factor for CHD)HDL-cholesterol is affected by a number of factors, e.g. smoking, exercise, hormones, sex and age. Serum or plasma cholesterol measurement (mass/volume)Ordered By: Gareth Hernandez on 09-16-2024 Cholesterol [Mass/Vol] 176 mg/dL <201 [facility] Comment on above: Cholesterol level, D esirable <200 mg/dLBorderline high cholesterol 200-239 mg/dLHigh cholesterol >=240 mg/dLRecommendations of the NCEP Adult Treatment Panel for the following risk-cutoff thresholds for the [place] population. Serum or plasma urea nitroge n measurement (mass/volume)Ordered By: Gareth Hernandez on 09-16-2024 Urea nitrogen [Mass/Vol] 18 mg/dL 4-19 [facility] Sodium levelOrdered By: Bakari Hernandez on 09-16-2024 Sodium [Moles/Vol] 138 mmol/L 133-145 [facility] TSH DL <= 0.005 mIU/L QnOrde red By: Gareth Hernandez on 09-16-2024 TSH Qn 2.520 uIU/mL 0.300-4.200 [facility] Thyroid Stim Hormone (TSH)on 09-16-2024 TSH 2.520 uIU/mL Normal 0.300-4.200 [facility] Comment on above: Performed By: #### L 501.9520, L100.0100, L500.4050, L500.4100 #### [facility] Laboratory [address] [place], [place], [address] Total proteinOrdered By: Sanford Hernandez on 09-16-2024 Protein [Mass/Vol] 7.5 g/dL 5.9-8.4 [facility] Triglycerides measurementOrd ered By: Gareth Hernandez on 09-16-2024 Triglyceride [Mass/Vol] 121 mg/dL <199 [facility] Comment on above: The drugs N-Acetylcy steine and Metamizole may falsely depress this assay. Normal range: <150 mg/dLBorderline High: 150-199 mg/dLHigh: 200-499 mg/dLVery High: >500 mg/dL White blood cell (WBC) count Ordered By: Gareth Hernandez on 09-16-2024 WBC (Bld) [#/Vol] 7.1 10*3/uL 4.4-11.0 [facility] CNOVon 08-01-2024 CNOV Office Visit (UCWSTR) ---- AMPARO HENDRICKSON ([id number]) 1965 M Date Time Provider Department 08/01/24 2:15 PM [facility] During your visit today, we recorded the following information about you: Temperature Pulse Respiration Blood pressure 98.1 degrees 81/minute 16/minute 138/82 Weight 98.4 kg Bahman Jimenez PA-C 08/01/2024 2:30 PM Signed This note was created using GlobeRangerriter. Subjective Amparo Hendrickson is a 59 year old male. Patient is a 59-year-old male who complains of congestion and cough that he has been experiencing for the past 1 day. Patient reports no ear pain or sore throat. Patient denies fever, chills or myalgia. Patient has no history of asthma or COPD and does not smoke. Cough Review of Systems HENT: Positive for congestion. Respiratory: Positive for cough. All other systems reviewed and are negative. Objective BP 138/82 Pulse 81 Temp 36.7 ?C (98.1 ?F) (Tympanic) Resp 16 Wt 98.4 kg (216 lb 14.9 oz) SpO2 96% Physical Exam Vitals and nursing note reviewed. Constitutional: Appearance: Normal appearance. He is normal weight. HENT: Head: Normocephalic and atraumatic. Right Ear: Tympanic membrane, ear canal and external ear normal. Left Ear: Tympanic membrane, ear canal and external ear normal. Nose: Nose normal. Mouth/Throat: Mouth: Mucous membranes are moist. Pharynx: Oropharynx is clear. Eyes: Extraocular Movements: Extraocular movements intact. Conjunctiva/sclera: Conjunctivae normal. Pupils: Pupils are equal, round, and reactive to light. Cardiovascular: Rate and Rhythm: Normal rate and regular rhythm. Pulses: Normal pulses. Heart sounds: Normal heart sounds. Pulmonary: Effort: Pulmonary effort is normal. Breath sounds: Normal breath sounds. Musculoskeletal: Cervical back: Normal range of motion and neck supple. Skin: General: Skin is warm and dry. Capillary Refill: Capillary refill takes less than 2 seconds. Neurological: General: No focal deficit present. Mental Status: He is alert and oriented to person, place, and time. Psychiatric: Mood and Affect: Mood normal. Behavior: Behavior normal. Thought Content: Thought content normal. Judgment: Judgment normal. Assessment and Plan Physical exam findings as noted above. Patient was provided with a prescription for Tessalon 100 mg and supportive care instructions were discussed. Patient verbalizes clear understanding of same. CLINICAL IMPRESSION: Acute URI ASSESSMENT/PLAN: 1. Acute URI - ICD9: 465.9, ICD10: J06.9 - BENZONATATE 100 MG CAPSULE MDM Risk of Complications, Morbidity, and/or Mortality Presenting problems: low Diagnostic procedures: low Management options: cony Jimenez PA-C Allergies As of Date: 08/01/2024 (No Known Allergies) Date Reviewed: 08/01/2024 Reviewed by: Radha Berman LPN - Fully Assessed Reason for Visit: Cough [28] Cmt: Cough, chest congestion, runny nose and sneezing x 1 day Primary Visit Diagnosis:Acute URI [J06.9] Order(s):benzonatat e (TESSALON PERLE) 100 mg capsuleTake 1 capsule by mouth three times a day as needed for cough for up to 7 days.Disp: 21 capsuleRfl: 0 Prescriptions as of 08/01/2024 - benzonatate (TESSALON PERLE) 100 mg capsule Take 1 capsule by mouth three times a day as needed for cough for up to 7 days. - ROSUVASTATIN CALCIUM (CRESTOR ORAL) Take by mouth. - LEVOTHYROXINE SODIUM (LEVOTHROID ORAL) Take by mouth. Problem List As Of Date: 08/01/2024 (None) Prescriptions ordered this encounter Disp Refills Start End BENZONATATE 100 MG CAPSULE 21 c* 0 08/01/2024 08/08/2024 Route: ORAL Sig: Take 1 capsule by mouth three times a day as needed for cough for up to 7 days. Level of Service: OFFICE/OUTPATIENT [facility] MDM 30 MINUTES [74637] Encounter Status:Closed by BAHMAN JIMENEZ on 08/01/24 Normal [facility] 02-26-2024 Aorta [facility] Imaging Services [address] [place] [address] Aorta MR#: [id number] Acct: [id number] Name: AMPARO HENDRICKSON Rep #: [id number] : 1965 M 58 From: Rosendo bowman DO PCP: Dr. Maria Esther Garcia MD Status: REG CLI Study: Aorta Date of Exam: 02/26/24 Exam# [id number] Ordering Dr: Maria Esther Garcia MD -[id number] EXAM: US RETROPERITONEAL LIMITED, AORTA CLINICAL INDICATION: screening due to family history, hypertension and obesity TECHNIQUE: [place] scale and color Doppler imaging was obtained of the abdominal aorta. COMPARISON: Renal and bladder ultrasound, 06/25/2016. FINDINGS: AORTA: The proximal abdominal aorta measures 2.0 x 2.2 cm. The mid abdominal aorta measures 1.8 x 2.0 cm. The distal abdominal aorta measures 1.8 x 2.0 cm. The abdominal aorta is slightly tortuous. No significant atheroma of the aorta is present. COMMON ILIAC ARTERIES: The bilateral common iliac arteries measure 1.2 x 1.1 cm each. US/Aorta IMPRESSION: No acute findings in the aorta. No abdominal aortic aneurysm. No future aortic screenings are necessary. Electronically Signed: Rosendo Lorenzana DO at 21:18 EDT , CC: Dr. Maria Esther Garcia MD Banana Handler: Signed Normal [facility] PSA,Total - Annual Screenon 10-22-2023 PSA,TOT SCREEN 0.63 ng/mL Normal 0.00-4.00 [facility] Comment on above: Result Comment: This test was performed using the TPSA assay method for the Flexiant chemistry system. Values obtained with different assay methods cannot be used interchangably. When changing PSA assays in the course of monitoring a patient, additional sequential testing should be carried out to confirm baseline values. Performed By: #### L 501.9910 #### [facility] Laboratory [address] [place], [address] Basophil percentageOrdered B y: Maria Esther Garcia on 09-08-2023 Chloride [Moles/Vol] 104 mmol/L 98-107 [facility] Cholesterol [Mass/Vol] 162 mg/dL <200 [facility] Comment on above: <200 mg/dL Desirable 200-240 mg/dL Borderline >240 mg/dL High Risk Glucose [Mass/Vol] 91 mg/dL 74-106 [facility] Potassium [Moles/Vol] 3.8 mmol/L 3.5-5.1 [facility] Sodium [Moles/Vol] 136 mmol/L 136-145 [facility] Triglyceride [Mass/Vol] 119 mg/dL <199 [facility] Comment on above: The drugs N-Acetylcy steine and Metamizole may falsely depress this assay.Serum Triglycerides Reference Interval Normal <150 mg/dL Borderline high 150 - 199 mg/dL High 200 - 499 mg/dL Very High > or = 500 mg/dL Laboratory - Chemistry and C hemistry - challengeOrdered By: Maria Esther Garcia on 09-08-2023 ALT [Catalytic activity/Vol] 32 U/L 16-61 [facility] Cholesterol in HDL [Mass/Vol] 43 mg/dL >40 [facility] Comment on above: The drugs N-Acetylcy steine and Metamizole may falsely depress this assay. Reference Range HDL <40 mg/dL Low HDL Cholesterol HDL >or= 60 mg/dL High HDL Cholesterol Cholesterol in LDL [Mass/Vol] 95 mg/dL 0-130 [facility] CO2 [Moles/Vol] 26.0 mmol/L 21.0-32.0 [facility] Urea nitrogen/Creatinine [Mass ratio] 19.3 mg/mg 10-20 [facility] No Panel InformationOrdered By: Maria Esther Garcia on 09-08-2023 Estimated GFR (MDRD) Amer 132 mL/min >60 [facility] Comment on above: GFR Calc Estimated GFR (MDRD) Non-Af Amer 109 mL/min >60 [facility] Comment on above: Non- GFR Calc VLDL Cholesterol 24 mg/dL 5-40 [facility] Serum or plasma calcium kathy urement (mass/volume)Ordered By: Maria Esther Garcia on 09-08-2023 Calcium [Mass/Vol] 9.1 mg/dL 8.5-10.1 [facility] Serum or plasma creatinine m easurement (mass/volume)Ordered By: Maria Esther Garcia on 09-08-2023 Creatinine [Mass/Vol] 0.78 mg/dL 0.70-1.30 [facility] Comment on above: The validity of the calculated GFR & GFRAA in patients over 70 years has not been determined. Clinical correlation is essential. Serum or plasma thyroid stim ulating hormone (TSH) measurement (units/volume)Ordered By: Maria Esther Garcia on 09-08-2023 TSH Qn 2.53 uIU/mL 0.358-3.74 [facility] Serum or plasma thyroxine (T 4) measurement (mass/volume)Ordered By: Maria Esther Garcia on 09-08-2023 T4 [Mass/Vol] 7.2 ug/dL 4.5-12.1 [facility] Serum or plasma urea nitroge n measurement (mass/volume)Ordered By: Maria Esther Garcia on 09-08-2023 Urea nitrogen [Mass/Vol] 15 mg/dL 7-18 [facility] Thin prep Papanicolaou smear with manual screeningOrdered By: Maria Esther Garcia on 09-08-2023 Protein (U) [Mass/Vol] 6.0 mg/dL 0.0-11.8 [facility] Thin prep Papanicolaou smear with manual screening 26 U/L 15-37 [facility] Thin prep Papanicolaou smear with manual screening 6 5-15 [facility] Urine creatinine measurement (mass/volume)Ordered By: Maria Esther Garcia on 09-08-2023 Creatinine (U) [Mass/Vol] 95.60 mg/dL NO RANGE EST. [facility] Urine protein/creatinine mas s ratioOrdered By: Maria Esther Garcia on 09-08-2023 Protein/Creatinine (U) [Mass ratio] 63 mg/g CRE 0-200 [facility] No Panel InformationOrdered By: Dr. Palacio on 10-20-2022 Prostate Specific Antigen Screen 0.64 ng/mL 0.00-4.00 [facility] Comment on above: This test was perfor med using the TPSA assay method for theRxAdvancemension chemistry system. Values obtained with differentassay methods cannot be used interchangably.When changing PSA assays in the course of monitoring apatient, additional sequential testing should be carriedout to confirm baseline values. No Panel Informationon 10-21 Prostate Specific Antigen Screen 0.55 ng/mL 0.00-4.00 [facility] Work Phone: Comment on above: This test was perfor med using the TPSA assay method for theTV Volume Wizard AppsiOrdrIt chemistry system. Values obtained with differentassay methods cannot be used interchangably.When changing PSA assays in the course of monitoring apatient, additional sequential testing should be carriedout to confirm baseline values. Vital Signs Date Time Vital Sign Value Performing Clinician Faci lity 09-16-2024 10:21-0400 Body height 167.[address] Maria Esther Garcia MD Work Phone: [facility] 09-16-2024 10:21-0400 Body mass index (BMI) [Ratio] 34.2 kg/m2 Dr. Maria Esther Garcia MD Work Phone: [facility] 09-16-2024 10:21-0400 Body temperature 97.6 [degF] Dr. Maria Esther Garcia MD Work Phone: [facility] 09-16-2024 10:21-0400 Body weight 96.[address] Maria Esther Garcia MD Work Phone: [facility] 09-16-2024 10:21-0400 Diastolic blood pressure 80 mm[Hg] Dr. Maria Esther Garcia MD Work Phone: [facility] 09-16-2024 10:21-0400 Heart rate 68 /min Dr. Maria Esther Garcia MD Work Phone: [facility] 09-16-2024 10:21-0400 Respiratory rate 16 /min Dr. Maria Esther Garcia MD Work Phone: [facility] 09-16-2024 10:21-0400 SaO2% (BldA) [Mass fraction] 96 % Dr. Maria Esther Garcia MD Work Phone: [facility] 09-16-2024 10:21-0400 Systolic blood pressure 124 mm[Hg] Dr. Maria Esther Garcia MD Work Phone: [facility] 08-01-2024 14:14-0400 Body temperature 98.1 [degF] Bahman Clutter PA-C Work Phone: [facility] 08-01-2024 14:14-0400 Body weight 98.4 kg Bahman Clutter PA-C Work Phone: [facility] 08-01-2024 14:14-0400 Diastolic blood pressure 82 mm[Hg] Bahman Clutter PA-C Work Phone: [facility] 08-01-2024 14:14-0400 Heart rate 81 /min Bahman Clutter PA-C Work Phone: [facility] 08-01-2024 14:14-0400 Respiratory rate 16 /min Bahman Clutter PA-C Work Phone: [facility] 08-01-2024 14:14-0400 SaO2% (BldA) [Mass fraction] 96 % Bahman Clutter PA-C Work Phone: [facility] 08-01-2024 14:14-0400 Systolic blood pressure 138 mm[Hg] Bahman Clutter PA-C Work Phone: [facility] Encounters Encounter Date Encounter Type Care Provider Facility Start: 09-21-2024 Encounter for genera l adult medical examination without abnormal findings Gareth LAMAR [facility] Start: 09-16-2024 End: 09-16-[address] Maria Esther Garcia MD Work Phone: [facility] Work Phone: Start: 09-16-2024 End: 09-16-2024 Patient encounter procedure Gareth LAMAR -[facility] Start: 09-16-2024 End: 09-16-2024 Patient encounter procedure Gareth LAMAR -[facility] Work Phone: Start: 09-16-2024 End: 09-16-2024 Patient encounter status Gareth LAMAR [facility] Start: 09-16-2024 End: 09-16-2024 ambulatory Maria Esther S Jolliff Facility:[facility] Start: 09-16-2024 End: 09-16-2024 ambulatory Gareth LAMAR Facility:[facility] Start: 08-01-2024 End: 08-01-2024 ambulatory MARIA ESTHER GARCIA Facility:[facility] Start: 08-01-2024 End: 08-01-2024 Office outpatient new 30 minutes Bahman Jimenez PA-C Work Phone: [facility] Comment on above: Acute URI (Primary D x) Start: 02-26-2024 End: 02-26-2024 ambulatory Maria Esther S Jolliff Facility:[facility] Start: 10-22-2023 End: 10-22-2023 ambulatory Karey Moclips Facility:[facility] Start: 09-08-2023 End: 09-08-2023 ambulatory [facility] Work Phone: Start: 09-08-2023 End: 09-08-2023 Patient encounter procedure [facility], [place] [facility] Start: 10-20-2022 End: 10-20-2022 ambulatory [facility] Work Phone: Start: 10-20-2022 End: 10-20-2022 Patient encounter procedure [facility] Start: 10-21-2021 End: 10-21-2021 Patient encounter procedure [facility] Plan of Treatment Date Care Activity Detail Author Start: 06-04-2032 Urine microalbumin profile DTaP,Tdap,Td Vaccine (3 - Td or Tdap) [facility] Start: 01-10-2024 Covid-19 Vaccine ( season) Covid-19 Vaccine ( season) [facility] Start: 01-10-2024 Influenza vaccination Influenza Vacc ine (#1) [facility] Start: 2021 Prostate specific an tigen measurement Prostate Cancer Screening Discussion [facility] Start: 2016 Pneumococcal Vaccine : 50+ (1 of 1 - PCV) Pneumococcal Vaccine: 50+ (1 of 1 - PCV) [facility] Start: 2016 Shingrix Vaccine (1 of 2) Shingrix V accine (1 of 2) [facility] Start: 2011 Diabetes Screening Diabetes Screenin g [facility] Start: 2011 Screening for malign ant neoplasm of colon [facility] Start: 2001 Lipid panel Lipid Screening [facility] Start: 1985 Hepatitis B Vaccine (1 of 3 - 19+ 3-dose series) Hepatitis B Vaccine (1 of 3 - 19+ 3-dose series) [facility] Start: 1984 Anxiety Screening Anxiety Screening [facility] Start: 1984 Depression Screening Depression Scre ening [facility] Start: 1984 Hepatitis C screening Hepatitis C Sc harveyning [facility] Start: 1984 HIV screening HIV Screening [facility] Immunizations Immunization Date Immunization Notes Care Provider Fa valorie 03-18-2021 influenza virus vacc ine, unspecified formulation Bahman Jimenez PA-C Work Phone: [facility] Payers Date Payer Category Payer Private Health Insurance [employer] PPO [id number] 2023 Self-pay [id number] 2021 Private Health Insurance [id number] 2014 Unknown [id number] Unknown [id number] Unknown [id number] Unknown [id number] Social History Date Type Detail Facility [facility] Work Phone: Start: 1965 Sex Assigned At Male [facility] Never [facility] tobacco [facility] Start: 08-01-2024 Alcoholic beverage intake Current drinker of alcohol (finding) [facility] Start: 08-01-2024 History of Social function [facility] Start: 08-01-2024 Tobacco use panel [facility] Start: 1965 Sex assigned at Not on file [facility] Start: 09-16-2024 [facility] (finding) [facility] Functional Status Date Assessment Result Facility 12-17-2014 Are you deaf, or do you have serious difficulty hearing No 12/17/2014 8:48 AM Madhavi Arana MA No [facility] 12-17-2014 Are you blind, or do you have serious difficulty seeing, even when wearing glasses No 12/17/2014 8:48 AM Madhavi Arana MA No [facility] 12-17-2014 Do you have serious difficulty walking or climbing stairs No 12/17/2014 8:48 AM Madhavi Arana MA No [facility] 12-17-2014 Do you have difficul ty dressing or bathing No 12/17/2014 8:48 AM Madhavi Arana MA No [facility] 12-17-2014 Because of a physica l, mental, or emotional condition, do you have difficulty doing errands alone such as visiting a physician's office or shopping No 12/17/2014 8:48 AM Madhavi Arana MA No [facility] Mental Status Date Assessment Result Facility 12-17-2014 Because of a physica l, mental, or emotional condition, do you have serious difficulty concentrating, remembering, or making decisions No 12/17/2014 8:48 AM EDT Madhavi Allred MA No [facility] Evaluation note 09-16-2024 Note Date & Type Note Facility 09-16-2024 Evaluation note Diagnosis Onset Date Resolution High cholesterol acute September 16, 2024 9:51am Routine adult health maintenance acute September 16, 2024 9: 51am [facility] Work Phone: Progress note 08-01-2024 Note Date & Type Note Facility 08-01-2024 Note HNO ID: [id number] Author: BAHMAN JIMENEZ PA-C Service: ? Author Type: Physician Retail Customer Service Representative Type: Progress Notes Filed: 08/01/2024 14:30 Note Text: This note was created using TripHoboter. Subjective Amparo Hendrickson is a 59 year old male. Patient is a 59-year-old male who complains of congestion and cough that he has been experiencing for the past 1 day. Patient reports no ear pain or sore throat. Patient denies fever, chills or myalgia. Patient has no history of asthma or COPD and does not smoke. Cough Review of Systems HENT: Positive for congestion. Respiratory: Positive for cough. All other systems reviewed and are negative. Objective BP 138/82 Pulse 81 Temp 36.7 ?C (98.1 ?F) (Tympanic) Resp 16 Wt 98.4 kg (216 lb 14.9 oz) SpO2 96% Physical Exam Vitals and nursing note reviewed. Constitutional: Appearance: Normal appearance. He is normal weight. HENT: Head: Normocephalic and atraumatic. Right Ear: Tympanic membrane, ear canal and external ear normal. Left Ear: Tympanic membrane, ear canal and external ear normal. Nose: Nose normal. Mouth/Throat: Mouth: Mucous membranes are moist. Pharynx: Oropharynx is clear. Eyes: Extraocular Movements: Extraocular movements intact. Conjunctiva/sclera: Conjunctivae normal. Pupils: Pupils are equal, round, and reactive to light. Cardiovascular: Rate and Rhythm: Normal rate and regular rhythm. Pulses: Normal pulses. Heart sounds: Normal heart sounds. Pulmonary: Effort: Pulmonary effort is normal. Breath sounds: Normal breath sounds. Musculoskeletal: Cervical back: Normal range of motion and neck supple. Skin: General: Skin is warm and dry. Capillary Refill: Capillary refill takes less than 2 seconds. Neurological: General: No focal deficit present. Mental Status: He is alert and oriented to person, place, and time. Psychiatric: Mood and Affect: Mood normal. Behavior: Behavior normal. Thought Content: Thought content normal. Judgment: Judgment normal. Assessment and Plan Physical exam findings as noted above. Patient was provided with a prescription for Tessalon 100 mg and supportive care instructions were discussed. Patient verbalizes clear understanding of same. CLINICAL IMPRESSION: Acute URI ASSESSMENT/PLAN: 1. Acute URI - ICD9: 465.9, ICD10: J06.9 - BENZONATATE 100 MG CAPSULE MDM Risk of Complications, Morbidity, and/or Mortality Presenting problems: low Diagnostic procedures: low Management options: low Bahman Jimenez PA-C [facility] History of Present illness Narrative 08-01-2024 Bahman Jimenez PA-C - 08/01/2024 2:28 PM EDT Note Date & Type Note Facility 08-01-2024 History of Presen t illness Narrative This note was created using [employer]. Subjective Amparo Hendrickson is a 59 year old male. Patient is a 59-year-old male who complains of congestion and cough that he has been experiencing for the past 1 day. Patient reports no ear pain or sore throat. Patient denies fever, chills or myalgia. Patient has no history of asthma or COPD and does not smoke. Cough Review of Systems HENT: Positive for congestion. Respiratory: Positive for cough. All other systems reviewed and are negative. Objective BP 138/82 Pulse 81 Temp 36.7 C (98.1 F) (Tympanic) Resp 16 Wt 98.4 kg (216 lb 14.9 oz) SpO2 96% Physical Exam Vitals and nursing note reviewed. Constitutional: Appearance: Normal appearance. He is normal weight. HENT: Head: Normocephalic and atraumatic. Right Ear: Tympanic membrane, ear canal and external ear normal. Left Ear: Tympanic membrane, ear canal and external ear normal. Nose: Nose normal. Mouth/Throat: Mouth: Mucous membranes are moist. Pharynx: Oropharynx is clear. Eyes: Extraocular Movements: Extraocular movements intact. Conjunctiva/sclera: Conjunctivae normal. Pupils: Pupils are equal, round, and reactive to light. Cardiovascular: Rate and Rhythm: Normal rate and regular rhythm. Pulses: Normal pulses. Heart sounds: Normal heart sounds. Pulmonary: Effort: Pulmonary effort is normal. Breath sounds: Normal breath sounds. Musculoskeletal: Cervical back: Normal range of motion and neck supple. Skin: General: Skin is warm and dry. Capillary Refill: Capillary refill takes less than 2 seconds. Neurological: General: No focal deficit present. Mental Status: He is alert and oriented to person, place, and time. Psychiatric: Mood and Affect: Mood normal. Behavior: Behavior normal. Thought Content: Thought content normal. Judgment: Judgment normal. Assessment and Plan Physical exam findings as noted above. Patient was provided with a prescription for Tessalon 100 mg and supportive care instructions were discussed. Patient verbalizes clear understanding of same. CLINICAL IMPRESSION: Acute URI ASSESSMENT/PLAN: 1. Acute URI - ICD9: 465.9, ICD10: J06.9 - BENZONATATE 100 MG CAPSULE MDM Risk of Complications, Morbidity, and/or Mortality Presenting problems: low Diagnostic procedures: low Management options: low Bahman Jimenez PA-C documented in this encounter [facility] Evaluation note Note Date & Type Note Facility Evaluation note No assessment information availa [facility] Work Phone: Evaluation note Note Date & Type Note Facility Evaluation note Diagnosis Acute URI- Primary Acute upper respiratory infections of unspecified site documented in this encounter [facility] Reason for referral (narrative) Note Date & Type Note Facility Reason for referral (narrative) No reason for referral information available [facility] Work Phone: Chief Complaint and Reason for Visit Chief Complaint PSA Chief Complaint Admit Date ACUTE - WANTS BLOODWORK September 16, 2024 9: 51am Reason for Visit Admit Date High cholesterol September 16, 2024 9:51am Routine adult health maintenance September 9:51am Summary Purpose Family History No Family History Records Found Relationship Condition Age at Onset Recorded Date/T melissa father High blood cholesterol Unknown Advance Directives No Advanced Directives Records FoundNo Advanced Directives Records Found Additional Source Comments Goals (unrecognized section and content) Goals may be documented in a n alternate sectionGoals may be documented in an alternate sectionGoals may be documented in an alternate sectionGoals may be documented in an alternate section Care Teams (unrecognized sec tion and content) Team Status: Active Member Role Status Dates Dr. Maria Esther Garcia MD Family Provider Active Dr. Maria Esther Garcia MD Primary Care Provider Active Team Status: Inactive Member Role Status Dates Dr. Maria Esther Garcia MD Primary Care Provider Active Dr. Edwin Palacio MD Attending Provider, Referr ing Provider Active Team Status: Inactive Member Role Status Dates Dr. Maria Esther Garcia MD Primary Care Provider, Attendin g Provider Active [facility] [facility] Relationship Specialty Start Date End Date Maria Esther Garcia [address] [place] [address] PCP - General Family Medicine 08/01/24 Team Status: Active Member Role Status Dates Dr. Maria Esther Garcia MD Family Provider Active Dr. Miya Ceron MD Primary Care Provider Active Team Status: Inactive Member Role Status Dates Dr. Maria Esther Garcia MD Primary Care Provider Active Start: September 16, 2024 End: September 16, 2024 Dr. Maria Esther Garcia MD Referring Provider Active Start: September 16, 2024 End: September 16, 2024 BRIANDA Blanco Attending Provider Active St art: September 16, 2024 End: September 16, 2024 Team Status: Inactive Member Role Status Dates Dr. Miya Ceron MD Primary Care Provider Active Start: September 16, 2024 End: September 16, 2024 BRIANDA Blanco Attending Provider Active St art: September 16, 2024 End: September 16, 2024 BRIANDA Blanco Referring Provider Active St art: September 16, 2024 End: September 16, 2024 Source Comments (unrecognize d section and content) In the event this informatio n is protected by the Federal Confidentiality of Alcohol and Drug Abuse Patient Records regulations: The Federal rules restrict any use of the information to criminally investigate or prosecute any alcohol or drug abuse patient.[facility] Reason for Visit (unrecogniz ed section and content) Reason Comments Cough Cough, chest congest ion, runny nose and sneezing x 1 day (unrecognized sect ion and content) No Status Records FoundNo Status Records Found INFORMATION SOURCE (unrecogn ized section and content) DATE CREATED AUTHOR 08/02/2024 [facility] DATE CREATED AUTHOR AUTHOR'S ORGANIZ ATION 09/23/2024 [facility] FOR RECORDS PERTAINING TO PATIENTS WHO ARE OR HAVE BEEN ENROLLED IN A CHEMICAL DEPENDENCY/SUBSTANCEABUSE PROGRAM, SOME INFORMATION MAY BE OMITTED. This clinical summary was aggregated from multiple sources. Caution should be exercised in using it in the provision of clinical care. This summary normalizes information from multiple sources, and as a consequence, information in this document may materially change the coding, format and clinical context of patient data. In addition, data may be omitted in some cases. CLINICAL DECISIONS SHOULD BE BASED ON THE PRIMARY CLINICAL RECORDS. [employer] provides no warranty or guarantee of the accuracy or completeness of information in this document.
== END | disposition home or self-care (01) ==
LOC: LAB 09:04
PROVIDERS: PCP Internal Medicine; Referring Provider Urology; Visit Provider Urology
DX: Z12.5 Encounter for screening for malignant neoplasm of prostate (principal)
CPT/HCPCS: 36415; 84153; G0103